=== PATIENT | male | born 1975 | race Two or more races ===

== ENCOUNTER 2020-03-16 11:10 | Emergency (ER) | payer OTHER ==
[~2020-03-16] VITALS: Ht 175.3 cm; Wt 81.6 kg
[2020-03-16] MEDS ORDERED: INSULIN REGULAR, HUMAN 100 UNIT/ML 10 ML VIAL ONE (11:22)
--- NOTE | 2020-03-16 11:26 | NUR ---
[facility] TO ER BED 13. AAOX4. NOT IN RESP DISTRESS, BREATHING EVEN AND UNLABORED. AMBULATORY. CAME IN FOR ELEVATED BS REPORTED AT >500. BS AT ER NOTED "HI". MD WAS AT THE BEDSIDE FOR EVAL, ORDERS RECEIVED. NOTED AND CARRIED OUT
[2020-03-16] MEDS: INSULIN REGULAR, HUMAN 100 UNIT/ML 10 ML VIAL SQ ONE ×3 (11:30→12:42)
--- NOTE | 2020-03-16 12:55 | NUR ---
PT IS MEDICALLY CLEARED FOR BOOKING. PT IS RELEASED UNDER THE CARE OF [facility]. PT IS IN STABLE CONDITION. PT IS AMBULATORY ON STEADY GAIT.
[2020-03-16 12:57] VITALS: BP 115/73
== END 2020-03-16 12:57 ==
LOC: ER 11:13
DX: E11.65 Type 2 diabetes mellitus with hyperglycemia (principal); I10 Essential (primary) hypertension
CPT/HCPCS: 82962 ×3; 96372 ×2; 99284; J1815